=== PATIENT | female | born 1980 | race African-American/Black ===

== ENCOUNTER → 2018-04-17 | Outpatient (CLI) | payer OTHER | END | disposition home or self-care (01) | LOC: RAD 09:43 | DX: M50.322 Other cervical disc degeneration at C5-C6 level (principal); M48.02 Spinal stenosis, cervical region; M25.552 Pain in left hip | CPT/HCPCS: 72040; 73502 ==

== ENCOUNTER 2019-10-24 10:42 | Emergency (ER) | payer OTHER ==
[~2019-10-24] VITALS: Ht 160 cm; Wt 86.2 kg
--- NOTE | 2019-10-24 11:11 | PHYS DOC ---
Past Medical History Past Medical History: Asthma, Fibromyalgia, GERD, Other Additional Past Medical Histor: migraines Past Surgical History: Cholecystectomy, , Hysterectomy Alcohol Use: Occasionally Drug Use: Marijuana Adult General Chief Complaint Chief Complaint: CHEST PAIN HPI HPI Patient is a 39 year old female with history of GERD, hypertension, fibromyalgia, asthma, migraine headache who presents with complaint of chest pain. Patient complaining of constant substernal aching chest pain with radiation to her back for the last 4 days and rated her pain 8/10 with severe shortness of breath. Patient denies palpitations, nausea, fever and chills, cough and congestion. Patient states the pain does not improve or getting worse with anything. Patient states she had history of the same pain previously. Patient states she has had stressful life. Review of Systems Review of Systems Constitutional: Denies fever or chills [] Eyes: Denies change in visual acuity, redness, or eye pain [] HENT: Denies nasal congestion or sore throat [] Respiratory: Denies cough, reports shortness of breath [] Cardiovascular: No additional information not addressed in HPI [] GI: Denies abdominal pain, nausea, vomiting, bloody stools or diarrhea [] : Denies dysuria or hematuria [] Musculoskeletal: Denies back pain or joint pain [] Integument: Denies rash or skin lesions [] Neurologic: Denies headache, focal weakness or sensory changes [] Endocrine: Denies polyuria or polydipsia [] All other systems were reviewed and found to be within normal limits, except as documented in this note. Current Medications Current Medications Current Medications Medications (Trade) Dose Ordered Sig/[facility] Start Time Stop Time Status Last Admin Dose Admin Lorazepam (Ativan Inj) 1 mg 1X ONCE 10/24/19 11:00 10/24/19 11:03 DC 10/24/19 11:16 1 MG Allergies Allergies Allergies Coded Allergies Type Severity Reaction Last Updated Verified diphenhydramine Allergy Intermediate itch 10/08/14 Yes oxycodone Allergy Intermediate upset stomach 10/08/14 No Physical Exam Physical Exam Constitutional: Well developed, well nourished, mild distress, non-toxic appearance. [] HENT: Normocephalic, atraumatic. Eyes: PERRLA, EOMI, conjunctiva normal, no discharge. [] Neck: Normal range of motion, no tenderness, supple, no stridor. [] Cardiovascular:Heart rate regular rhythm, no murmur [] Lungs & Thorax: Bilateral breath sounds clear to auscultation [] Abdomen: Bowel sounds normal, soft, no tenderness, no masses, no pulsatile masses. [] Skin: Warm, dry, no erythema, no rash. [] Back: No tenderness, no CVA tenderness. [] Extremities: No tenderness, no cyanosis, no clubbing, ROM intact, no edema. [] Neurologic: Alert and oriented X 3, no focal deficits noted. [] Psychologic: Affect normal, judgement normal, mood normal. [] Current Patient Data Vital Signs Vital Signs Date Time Temp Pulse Resp B/P (MAP) Pulse Ox O2 Delivery O2 Flow Rate FiO2 10/24/19 11:55 64 142/90 (107) 97 Room Air 10/24/19 10:55 98.0 16 98.0 Lab Values Laboratory Tests Test 10/24/19 10:58 10/24/19 11:30 White Blood Count 10.2 x10^3/uL (4.0-11.0) Red Blood Count 4.39 x10^6/uL (3.50-5.40) Hemoglobin 13.8 g/dL (12.0-15.5) Hematocrit 40.8 % (36.0-47.0) Mean Corpuscular Volume 93 fL (79-100) Mean Corpuscular Hemoglobin 32 pg (25-35) Mean Corpuscular Hemoglobin Concent 34 g/dL (31-37) Red Cell Distribution Width 13.7 % (11.5-14.5) Platelet Count 254 x10^3/uL (140-400) Neutrophils (%) (Auto) 69 % (31-73) Lymphocytes (%) (Auto) 25 % (24-48) Monocytes (%) (Auto) 5 % (0-9) Eosinophils (%) (Auto) 1 % (0-3) Basophils (%) (Auto) 0 % (0-3) Neutrophils # (Auto) 7.0 x10^3/uL (1.8-7.7) Lymphocytes # (Auto) 2.6 x10^3/uL (1.0-4.8) Monocytes # (Auto) 0.5 x10^3/uL (0.0-1.1) Eosinophils # (Auto) 0.1 x10^3/uL (0.0-0.7) Basophils # (Auto) 0.0 x10^3/uL (0.0-0.2) Sodium Level 142 mmol/L (136-145) Potassium Level 3.4 mmol/L (3.5-5.1) L Chloride Level 107 mmol/L (98-107) Carbon Dioxide Level 28 mmol/L (21-32) Anion Gap 7 (6-14) Blood Urea Nitrogen 9 mg/dL (7-20) Creatinine 0.8 mg/dL (0.6-1.0) Estimated GFR (Cockcroft-Gault) 96.1 BUN/Creatinine Ratio 11 (6-20) Glucose Level 87 mg/dL (70-99) Calcium Level 8.8 mg/dL (8.5-10.1) Magnesium Level 1.7 mg/dL (1.8-2.4) L Total Bilirubin 0.3 mg/dL (0.2-1.0) Aspartate Amino Transferase (AST) 11 U/L (15-37) L Alanine Aminotransferase (ALT) 12 U/L (14-59) L Alkaline Phosphatase 101 U/L (46-116) Creatine Kinase 93 U/L (26-192) Troponin I Quantitative < 0.017 ng/mL (0.000-0.055) XE-Aph-Y-Type Natriuretic Peptide 62 pg/mL (0-124) Total Protein 6.9 g/dL (6.4-8.2) Albumin 3.1 g/dL (3.4-5.0) L Albumin/Globulin Ratio 0.8 (1.0-1.7) L Laboratory Tests 10/24/19 10:58 Laboratory Tests 10/24/19 11:30 EKG EKG EKG interpreted by me. EKG at 1050 showed normal sinus rhythm at rate of 66, normal ME and QT intervals, no acute ST-T wave elevation. Radiology/Procedures Radiology/Procedures [facility] [address] [place] [address] IMAGING REPORT Signed PATIENT: JACINTA FONSECA ACCOUNT: [id number] : 1980 LOCATION: ER AGE: 39 SEX: F EXAM STATUS: REG ER ORD. PHYSICIAN: POOJA STRINGER MD REASON: chest pain PROCEDURE: CHEST PA & LATERAL CHEST PA LATERAL History: Chest pain Comparison: September 14, 2010 Findings: 2 views of the chest are submitted. There is no infiltrate, pneumothorax, or effusion. Pericardial cardiac silhouette is within normal limits in size. Impression: 1. There is no radiographic evidence of acute cardiopulmonary disease. Electronically signed by: Shanthi Boles MD (10/24/2019 11:47 AM) [id number] DICTATED and SIGNED BY: SHANTHI BOLES MD DATE: 10/24/19 1147 Course & Med Decision Making Course & Med Decision Making Pertinent Labs and Imaging studies reviewed. (See chart for details) Evaluation of patient in ER showed 39-year-old female patient with heart score of 1 and complaining of chest pain for 4 days. Patient had unremarkable physical exam and EKG at chest x-ray and labs except for mild hypomagnesemia at 1.7. Patient was treated with Ativan and felt better. Plan discharge patient home with diagnose of noncardiac chest pain and anxiety. I've spoken with the patient and/or caregivers. I've explained the patient's condition, diagnosis and treatment plan based on information available to me at this time. I've answered the patient's and/or caregivers questions and addressed any concerns. The patient and/or caregivers have a good understanding the patient's diagnosis, condition and treatment plan as can be expected at this point. Vital signs have been stabilized. The patient's condition is stable for discharge from the emergency department. The patient will pursue further outpatient evaluation with her primary care provider or other designated consulting physician as outlined in the discharge i nstructions. Patient and/or caregivers are agreeable to this plan of care and follow-up instructions have been explained in detail. The patient and/or caregivers have received these instructions in written format and expressed understanding of these discharge instructions. The patient and her caregivers are aware that if any significant change in condition or worsening of symptoms should prompt him to immediately return to this of the closest emergency department. If an emergent department is not readily available I would encourage him to call 911. Jasbir Disclaimer Dragon Disclaimer This electronic medical record was generated, in whole or in part, using a voice recognition dictation system. Departure Departure Impression: Primary Impression: Non-cardiac chest pain Additional Impressions: Anxiety about health Hypomagnesemia Disposition: HOME, SELF-CARE (at 12:15) Condition: IMPROVED Referrals: JANES ROLLINS (PCP) Patient Instructions: Anxiety and Panic Attacks, Chest Pain (Nonspecific), Hypomagnesemia Additional Instructions: Drink plenty of liquids Follow-up with your primary care physician in 3-5 days Return to ER if not getting better Thank you for visiting [facility]. We appreciate you trusting us with your care. If any additional problems come up don't hesitate to return to visit us. Please follow up with your primary care provider so they can plan additional care if needed and know about the problem that you had. If symptoms worsen come back to the Emergency Department. Any concerning symptoms that start such as chest pain, shortness of air, weakness or numbness on one side of the body, running high fevers or any other concerning symptoms return to the ER. Scripts Alprazolam (XANAX) 0.25 Mg Tablet 0.25 MG PO PRN Q6HRS PRN for ANXIETY / AGITATION, #10 TAB 0 Refills Prov: POOJA STRINGER MD 10/24/19 The HEART Score for CP Pts HEART Score for Chest Pain: HEART Score for Chest Pain Response (Comments) Value History Slighlty/Non-Suspicious 0 ECG Normal 0 Age < 45 0 Risk Factors 1 or 2 Risk Factors 1 Troponin < Normal Limit 0 Total 1 Risk Factors: Risk Factors: DM, Current or recent (<one month) smoker, HTN, HLP, family history of CAD, obesity. Risk Scores: Score 0 - 3: 2.5% MACE over next 6 weeks - Discharge Home Score 4 - 6: 20.3% MACE over next 6 weeks - Admit for Clinical Observation Score 7 - 10: 72.7% MACE over next 6 weeks - Early Invasive Strategies Problem Qualifiers POOJA STRINGER MD Oct 24, 2019 11:11
--- NOTE | 2019-10-24 11:18 | EKG ---
[facility] [address] [place] [address] Test Date: 2019-10-24 Test Time: 10:50:23 Pat Name: JACINTA FONSECA Department: Room: Gender: F [employer]: : 1980 Requested By: POOJA STRINGER Order Number: [id number] Reading MD: Measurements Intervals [place] Rate: 66 P: 90 ID: [id number] QRS: 26 QRSD: 84 T: 18 QT: 406 QTc: 427 Interpretive Statements SINUS RHYTHM NORMAL ECG No previous ECG available for comparison
[2019-10-24 11:29] LABS: BASO % 0 % (0-3); EOS # 0.1 x10^3/uL (0.0-0.7); EOS % 1 % (0-3); HEMATOCRIT 40.8 % (36.0-47.0); HEMOGLOBIN 13.8 g/dL (12.0-15.5); LYMPH # 2.6 x10^3/uL (1.0-4.8); LYMPH % 25 % (24-48); MEAN CORPUSCULAR HEMOGLOBIN 32 pg (25-35); MEAN CORPUSCULAR HGB CONC 34 g/dL (31-37); MEAN CORPUSCULAR VOLUME 93 fL (79-100); MONO # 0.5 x10^3/uL (0.0-1.1); MONO % 5 % (0-9); NEUT % 69 % (31-73); PLATELET COUNT 254 x10^3/uL (140-400); RED BLOOD COUNT 4.39 x10^6/uL (3.50-5.40); RED CELL DISTRIBUTION WIDTH 13.7 % (11.5-14.5); WHITE BLOOD COUNT 10.2 x10^3/uL (4.0-11.0)
[2019-10-24 11:47] LABS: CALCIUM 8.8 mg/dL (8.5-10.1); CREATININE 0.8 mg/dL (0.6-1.0); GFR 96.1; POTASSIUM 3.4 mmol/L (3.5-5.1)
--- NOTE | 2019-10-24 11:50 | RAD ---
CHEST PA LATERAL History: Chest pain Comparison: September 14, 2010 Findings: 2 views of the chest are submitted. There is no infiltrate, pneumothorax, or effusion. Pericardial cardiac silhouette is within normal limits in size. Impression: 1. There is no radiographic evidence of acute cardiopulmonary disease. Electronically signed by: Oz Boles MD (10/24/2019 11:47 AM) [id number]
[2019-10-24 11:54] LABS: ALBUMIN 3.1 g/dL (3.4-5.0); ALBUMIN/GLOBULIN RATIO 0.8 (1.0-1.7); MAGNESIUM 1.7 mg/dL (1.8-2.4); TOTAL BILIRUBIN 0.3 mg/dL (0.2-1.0); TOTAL PROTEIN 6.9 g/dL (6.4-8.2)
[2019-10-24] MEDS ORDERED: ALPR0.25 PO (12:17)
[2019-10-24 12:30] VITALS: BP 139/86
== END 2019-10-24 12:35 | disposition home or self-care (01) ==
LOC: ER 10:42
DX: R07.89 Other chest pain (principal); F41.9 Anxiety disorder, unspecified; E83.42 Hypomagnesemia; J45.909 Unspecified asthma, uncomplicated; M79.7 Fibromyalgia; K21.9 Gastro-esophageal reflux disease without esophagitis; G43.909 Migraine, unspecified, not intractable, without status migrainosus; F12.90 Cannabis use, unspecified, uncomplicated; Z90.49 Acquired absence of other specified parts of digestive tract; Z90.710 Acquired absence of both cervix and uterus; Z98.890 Other specified postprocedural states; Z88.8 Allergy status to other drugs, medicaments and biological substances; Z88.5 Allergy status to narcotic agent
CPT/HCPCS: 36415; 71046; 80053; 82550; 83735; 83880; 84484; 85025; 93005; 96374; 99285; J2060